=== PATIENT | male | born 1945 | race Caucasian/White ===

== ENCOUNTER 2018-01-21 13:11 | Outpatient (CLI) ==
--- NOTE | 2018-01-21 15:10 | MRI ---
EXAM: MRI brain without IV contrast. DATE: 20 January 2018. HISTORY: Dizziness. TECHNIQUE: Sagittal T1W, axial T2W, axial FLAIR, axial T1W, axial DWI, and coronal T2W GRE sequences of the brain were obtained using 1.5 Mary magnet. No IV contrast. COMPARISON: MRI brain 04 February 2009. FINDINGS: The lateral ventricles, temporal tips, third ventricle, Sylvian fissures and many cerebral sulci are enlarged due to involutional change. CSF spaces overlying the frontal and parietal lobes are prominent, without loculated arachnoid cyst or hemorrhages. No midline shift or herniation is ap parent. Tiny DWI bright focus in the midline medulla may be artifact, since there is no correspondin g abnormality on any other sequence. No acute cerebral or cerebellar infarct, acute hemorrhage or in tra-axial neoplasm is identified. Narrow, confluent rim of T2W/FLAIR hyperintensity is observed in t he white matter abutting each lateral ventricle. Multiple 2-8 mm, T2W/FLAIR bright foci are scattere d in the santoyo radiata, centrum semiovale and subcortical white matter bilaterally. The jimenez - whit e matter differentiation is normal. The 7th/8th cranial nerve complexes, cerebellopontine angles, br ainstem, and visible cervical spinal cord are normal. There is no cerebellar tonsillar ectopia. The pituitary gland is small in size, with CSF filling part of the pituitary fossa. Corpus callosum is normal in size and configuration. Flow voids are present in the major intracranial arteries and in t he dural venous sinuses. No aneurysm, AVM or dural venous sinus thrombosis is apparent. No orbit ab normality is identified. The mastoid air cells are unremarkable. There is no acute sinusitis. No s uspicious neck mass or lymphadenopathy is detected. A curvilinear shaped T2W/T1W bright focus consis tent with lipoma (3.5 x 1.5 x 4 cm) is identified in the muscles at the right paramidline occipital r egion. No calvarial neoplasm or acute fracture is evident. IMPRESSIONS: 1. Probable DWI artifact in the medulla. Correlate with clinical symptoms. 2. No acute cerebral or cerebellar infarct, hemorrhage, mass or hydrocephalus. 3. Minor cerebral small vessel disease. 4. Mild/moderate cerebral atrophy. 5. Small pituitary gland. 6. Benign appearing lipoma right paramidline muscle near the occiput.
--- NOTE | 2018-01-21 15:24 | US ---
EXAM: Carotid ultrasound HISTORY: Dizziness COMPARISON: None TECHNIQUE: Carotid ultrasound was performed using jimenez scale, color, and Doppler imaging was perform ed. FINDINGS: Right carotid: There is mild atherosclerotic plaque without significant visualized area of atheroscl erotic narrowing. Peak systolic velocity measurement in the right internal carotid artery is 0.5 met ers per second. End-diastolic velocity measurement in the right internal carotid artery is 0.1 meter s per second. Right internal to common carotid artery peak systolic velocity ratio is 0.2. Flow in the right vertebral artery is antegrade. Left carotid: There is mild atherosclerotic plaque without significant visualized area of atheroscle rotic narrowing. Peak systolic velocity measurement in the left internal carotid artery is 0.4 meter s per second. End-diastolic velocity measurement in the left internal carotid artery is 0.1 meters p er second. Left internal to common carotid artery peak systolic velocity ratio measures 0.5. Flow i n the left vertebral artery is antegrade. IMPRESSION: 1. Right internal carotid: No evidence for greater than 50% stenosis 2. Left internal carotid: No evidence for greater than 50% stenosis
== END 2018-01-21 13:12 | disposition home or self-care (01) ==
LOC: RAD 13:11
PROVIDERS: ATTEND Internal Medicine
DX: R42 Dizziness and giddiness (principal); E78.5 Hyperlipidemia, unspecified; F03.90 Unspecified dementia, unspecified severity, without behavioral disturbance, psychotic disturbance, mood disturbance, and anxiety